=== PATIENT | female | born 1990 | race Caucasian/White ===

== ENCOUNTER → 2020-12-24 10:17 | Outpatient (BNVA) | payer MEDICAID, SELFPAY | PROVIDERS: PCP Nurse Practitioner Family; Visit Provider Specialist | DX: G40.909 Epilepsy, unspecified, not intractable, without status epilepticus (principal); G43.711 Chronic migraine without aura, intractable, with status migrainosus; F31.9 Bipolar disorder, unspecified | CPT/HCPCS: 99204; 99205 ==

== ENCOUNTER → 2021-03-04 10:18 | Outpatient (BNVA) | payer MEDICAID, SELFPAY | PROVIDERS: PCP Nurse Practitioner Family; Referring Provider Specialist; Visit Provider Specialist | DX: R56.9 Unspecified convulsions (principal); G43.711 Chronic migraine without aura, intractable, with status migrainosus | CPT/HCPCS: 95816 ==

== ENCOUNTER → 2021-03-11 14:53 | Outpatient (BNVA) | payer MEDICAID, SELFPAY | PROVIDERS: PCP Nurse Practitioner Family; Visit Provider Specialist | DX: G43.711 Chronic migraine without aura, intractable, with status migrainosus (principal); R56.9 Unspecified convulsions; F31.9 Bipolar disorder, unspecified | CPT/HCPCS: 99214 ==